=== PATIENT | male | born 1990 | race American Indian/Alaskan Native ===

== ENCOUNTER 2019-12-30 19:54 | Emergency (ER) | payer OTHER ==
[~2019-12-30] VITALS: Ht 170.2 cm; Wt 86.6 kg
[~2019-12-30 19:54] MED LIST: IBUPROFEN800 MG PO; NORCO 5-325 TA1 EACH PO; PERCOCET 7.5-31 EACH PO
[2019-12-30] MEDS ORDERED: POTASSIUM CHLO20 ME1 PO (23:27)
== END 2019-12-30 23:50 | disposition home or self-care (01) ==
LOC: ED 19:54
DX: R10.13 Epigastric pain (principal); R11.10 Vomiting, unspecified; F17.200 Nicotine dependence, unspecified, uncomplicated
CPT/HCPCS: 74022; 80053; 83690; 85025; 96361; 96374; 99284-25; J2405; J7030

== ENCOUNTER 2022-07-27 14:00 | Emergency (ER) | payer OTHER ==
[~2022-07-27] VITALS: Ht 170.2 cm; Wt 92.5 kg
[~2022-07-27 14:00] MED LIST changes: +MELOXICAM15 MG PO; +POTASSIUM CHLO20 ME1 PO
[2022-07-27] MEDS ORDERED: PENICILLIN V P500 MG PO (15:08)
== END 2022-07-27 15:23 | disposition home or self-care (01) ==
LOC: ED 14:00
DX: K04.7 Periapical abscess without sinus (principal); F17.200 Nicotine dependence, unspecified, uncomplicated
CPT/HCPCS: 99282; A9270